=== PATIENT | male | born 1960 | race Caucasian/White ===

== ENCOUNTER 2019-10-26 08:06 | Emergency (ER) | payer MEDICARE, MEDICAID, SELFPAY ==
[2019-10-26 08:18] VITALS: BP 143/78; PULSE 77; RESP 18; TEMP 36.6; O2SAT 97
--- NOTE | 2019-10-26 08:24 | ED.GENADULT ---
HPI - General Adult General Chief complaint: Eye Problems Stated complaint: eye swollen/itchy Time Seen by Provider: 10/26/19 08:28 Source: patient and RN notes reviewed Mode of arrival: ambulatory Limitations: no limitations History of Present Illness HPI narrative: This is a 58 years old male presents to the office for an evaluation of possible pink eye. Onset yesterday with left eye irritate, itchy and slightly swollen. This morning, he noticed redness. He does not wear glasses/contact lens. He has tried warm compress prior to arrival. Denies sick contact. Related Data Home Medications Medication Instructions Recorded Confirmed alprazolam 1 mg PO DAILY 10/26/19 10/26/19 olanzapine [Zyprexa] 2.5 mg PO DAILY 10/26/19 10/26/19 oxcarbazepine 600 mg PO BID 10/26/19 10/26/19 rosuvastatin 10 mg PO DAILY 10/26/19 10/26/19 Allergies Allergy/AdvReac Type Severity Reaction Status Date / Time No Known Allergies Allergy Verified 10/26/19 08:30 Review of Systems Review of Systems: Narrative: CONSTITUTIONAL: Denies fever, chills EYES: Denies visual changes or discharge. ENT: Denies congestion CARDIOVASCULAR: Denies chest pain RESPIRATORY: Denies cough GASTROINTESTINAL: Denies abdominal pain, nausea, vomiting SKIN: Denies rash MUSCULOSKELETAL: Denies acute back pain NEUROLOGIC: Denies lightheaded PMFSH Past Medical History Medical History (Updated 10/26/19 @ 08:47 by DESMOND Carpenter) Mixed hyperlipidemia Other chronic pain Other intervertebral disc degeneration, lumbar region Primary osteoarthritis of left knee Unspecified perforation of tympanic membrane, right ear with tumor growth Family History Family History Father Family history of diabetes mellitus in first degree relative Other Family history of coronary artery disease Family history of lymphoma Social History Social History Smoking status: Former smoker Alcohol intake: current Comments At time of signature, I agree with nursing past medical, surgical, social and family history. There is no relevant family history pertinent to the presenting complaint. Exam Narrative: Exam Narrative: GENERAL: This is a well-nourished, well-developed patient, in no apparent distress. EYES: PERRL. EMOI. Left upper lid noticed erythema, edematous with slight tender to palpation. Conjuctiva normal. Sclera clear/white. Vision is grossly intact. EARS: External ears normal, auditory canals clear and without drainage, Right TM noted perforation; left TM normal without perforation. Hearing grossly intact. THROAT: Mucous membranes moist, posterior pharynx clear. NECK: Neck supple, non-tender without lymphadenopathy, masses or thyromegaly. CARDIOVASCULAR: Regular rate and rhythm without murmurs, gallops, or rubs. RESPIRATORY: Clear to auscultation. Breath sounds equal bilaterally. No wheezes, rales, or rhonchi. GASTROINTESTINAL: Abdomen soft, non-tender, nondistended. Bowel sounds are active. No hepato-splenomegaly, or palpable masses. No guarding. SKIN: warm, intact with no suspicious lesions or rash, good texture and turgor. NEURO: awake, alert, and oriented to person, place and time. There were no obvious focal neurologic abnormalities. Steady gait Liz Coma Scale Eye Opening: Spontaneous 4 Liz Coma Scale Motor: Obeys Commands 6 Liz Coma Scale Verbal: Oriented 5 Course Vital Signs Vital signs: Vital Signs Temperature 97.8 F 10/26/19 08:18 Pulse Rate 77 10/26/19 08:18 Respiratory Rate 18 10/26/19 08:18 Blood Pressure 143/78 H 10/26/19 08:18 Pulse Oximetry 97 10/26/19 08:18 Temperature 97.8 F 10/26/19 08:18 Pulse Rate 77 10/26/19 08:18 Respiratory Rate 18 10/26/19 08:18 Blood Pressure 143/78 H 10/26/19 08:18 Pulse Oximetry 97 10/26/19 08:18 Medical Decision Making [facility] Narrative Medical decis
== END 2019-10-26 08:42 | disposition home or self-care (01) ==
PROVIDERS: Emergency Provider Nurse Practitioner; PCP Family Medicine
DX: H00.014 Hordeolum externum left upper eyelid (principal); Z87.891 Personal history of nicotine dependence; E78.2 Mixed hyperlipidemia; M51.36 Other intervertebral disc degeneration, lumbar region; M17.12 Unilateral primary osteoarthritis, left knee
CPT/HCPCS: 99213; G0463